=== PATIENT | female | born 1955 | race Caucasian/White ===

== ENCOUNTER 2017-01-27 10:16 | Emergency (ER) | payer BC ==
[2017-01-27 10:48] VITALS: RESP 18
--- NOTE | 2017-01-27 10:48 | PDOC ---
Nausea/Vomiting/Diarrhea HPI - General Chief Complaint: Nausea / Vomiting / Diarrhea Stated Complaint: n/v/d for 5 days, liver issues Date Seen by Provider: 01/27/17 Time Seen by Provider: 10:43 Source: POSITIVE: Patient Exam Limitations: POSITIVE: No limitations Nurse's Notes Reviewed & Considered: Yes - History of Present Illness Initial Comments: This is a 61-year-old female who presents to the emergency room with a history of nausea, vomiting, and diarrhea for the last 5 days or so. She has no real significant abdominal pain. No fevers, she has had some chills. No hematemesis or coffee-ground emesis, no melena or hematochezia. No lightheadedness or dizziness. She is initially seen at the urgent care clinic in [place], the initial workup showed a significant hepatitis, but no evidence of gallstones or ductal dilation on the outpatient ultrasound. She was sent here for further evaluation and treatment. - Patient Home Medications Home Medications: Home Medications Atenolol 1 tab PO BID tab 10/19/16 Calcium Carbonate/Vitamin D3 [Calcium 600-Vit D3 200 Tablet] 1 tab PO BID tab 10/19/16 Cholecalciferol (Vitamin D3) [Vitamin D3] 1 tab PO QD tab 10/19/16 Ezetimibe [Zetia] 10 mg PO QHS tab 10/19/16 Gemfibrozil [Lopid] 600 mg PO BID tab 10/19/16 Hydrochlorothiazide 1 tab PO DAILY tab 10/19/16 Potassium Chloride [K-Tab Er] 20 meq PO BID tab 10/19/16 Rosuvastatin Calcium [Crestor] 1 tab PO QHS tab 10/19/16 Tizanidine HCl [Zanaflex] 1 tab PO QHS PRN tab 10/19/16 Trazodone HCl 1 tab PO DAILY tab 10/19/16 Venlafaxine HCl ER [Effexor Xr] 1 cap PO QHS cap 10/19/16 Venlafaxine HCl [Effexor Xr] 1 cap PO DAILY cap 10/19/16 Diltiazem HCl [Cardizem] 120 mg PO DAILY 10/21/16 Losartan [Cozaar] 50 mg PO DAILY 10/21/16 Ondansetron [Zofran Odt] 8 mg PO Q8H #10 tab 11/05/16 Cyclobenzaprine HCl 10 mg PO BEDTIME PRN PRN 01/27/17 - Patient Allergies Allergies/Adverse Reactions: Allergies Allergy/AdvReac Type Severity Reaction Status Date / Time Sulfa (Sulfonamide Allergy Mild rash Verified 01/27/17 10:28 Antibiotics) Past Medical History - heen HEENT History: Denies History Additional HEENT History: GLASSES Cardiovascular History: Hypertension, Hyperlipidemia Respiratory History: Denies History Gastrointestinal History: Denies History Genitourinary History: Denies History Endocrine History: Denies History Musculoskeletal History: Denies History Neurological History: Denies History Blood Disorders: Denies History Psychiatric History: Depression History of Sexually Transmitted Diseases: No Cancer History: Denies History History of MDRO: No History of Other Communicable Diseases: No Tobacco Use: Former Smoker (Quit in 2014) Alcohol Use: Occasionally Substance Use Type: None Previous Surgical History: Yes Type / Date of Surgery: LEFT BREAST BX 1985, BENIGN Anesthesia Reactions: No Malignant Hyperthermia: No Significant Family History: Heart disease Past Medical History Reviewed: Reviewed - Changes Made ROS - Limitations ROS Limitations: No Limitations Constitution: REPORTS: Chills. DENIES: Fever Cardiovascular: DENIES: Chest Pain Respiratory: REPORTS: Denies Resp Symptoms Neurological: REPORTS: Headache. DENIES: Dizziness Gastrointestinal: REPORTS: Nausea, Vomitting, Diarrhea. DENIES: Abdominal Pain , Black Stools, Bloody Stools Endocrine: REPORTS: Fatigue Musculoskeletal: DENIES: Muscle Aches Genitourinary: DENIES: Dysuria, Flank Pain, Hematuria Eyes: DENIES: Vision Changes ENT: DENIES: Congestion, Nasal Drainage Skin: REPORTS: Denies Skin Symptoms Psychiatric: POSITIVE: Denies Psych Symptoms Nausea/Vomiting/Diarrhea Exam - General Appearance General Appearance: POSITIVE: Alert, Cooperative, No Acute Distress - HEENT HEENT: POSITIVE: EOMI. NEGATIVE: Scleral Icterus - Neck Neck: POSITIVE: Supple, Normal Inspection - Respiratory Respiratory: POSITIVE: No Respiratory Distress, Breath Sounds Normal. NEGATIVE : Wheezes, Rales, Rhonchi - Cardiovascular Cardiovascular: POSITIVE: Regular Rate and Rhythm, Heart Sounds Normal. NEGATIVE: Murmur - Abdomen Additional Abdominal Details: Abdomen is soft, nontender, nondistended. She does have a mildly enlarged liver approximately 1-2 cm below the costal margin. She has no pulsatile masses or abdominal bruits, she has active bowel sounds all 4 quadrants. - Back Back: POSITIVE: Normal Inspection. NEGATIVE: CVA Tenderness (R), CVA Tenderness (L) - Skin Skin: POSITIVE: Intact, Warm, Dry, No Rash, Other (No pitting edema.) - Neurological / Psychological Neurological: POSITIVE: Affect Apporpriate, Oriented X3 N/V/D Progress - Results Reviewed by me Xrays/CTs/US Reviewed by me: Yes Discussed with Radiologist: Yes Radiology Findings: No acute processes Lab Results Reviewed: Yes Lab Results:: INR and PTT were normal on the labs that were sent to [facility] [place] - Patient's Progress Re-examine Time: 02:30 (stable - labs reviewed) Re-Examine Time:: 17:05 (stable) Status: POSITIVE: Unchanged MDM / ED Course: Emergency room course: After initial evaluation, a CT was obtained to try and figure out a cause for her acute hepatitis values. That CT was normal. I subsequently discussed the case with our hospitalist Dr. Martinez, and per his recommendation I did order INR PTT values. These labs ended up having to be sent to [facility] in [place] due to significant lipemia. Her INR PTT are normal. A subsequent discussed the case Dr. Clay, gastrologist from [place]. After discussion with him, he suggested ordering a Tylenol level to complete workup as well as suggesting stopping all of her hyperlipidemic medications, since these could be the etiology as well. I also ordered a viral hepatitis series. All this is reviewed with the patient, she'll be discharged home. She is to stop her cholesterol medications at this time. She is follow- up with her primary care provider on Tuesday to recheck her liver function tests. Return if symptoms get worse otherwise follow up with gastroenterology as needed. - Consult Consult (If Yes, Name of Consulting MD & Time Called): Yes (Dr. Clay, [facility]) Consulting MD will see pt:: POSITIVE: In Office Counseled: POSITIVE: Patient, RE: Lab Results, RE: Radiology Results, RE: DX, RE : Need for F/U Patient Care Time - Estimated PCT Patient Care Time (In Minutes): 40 Vital Signs - Recent Vital Signs Vital Signs: Vital Signs (Last 8 hours) Temp Pulse Resp BP Pulse Ox 01/27/17 12:45 98 F 88 18 134/73 92 01/27/17 10:17 97.4 F 100 18 152/81 93 Discharge Clinical Impression: Acute hepatitis Discharge Disposition: Discharged to Home Condition: Stable Patient Instructions Given at Discharge: Alcoholic Hepatitis (ED)
--- NOTE | 2017-01-27 12:31 | DI ---
CT ABDOMEN SCAN WITH IV CONTRAST, 01/27/2017 10:52 AM : Clinical History: Abnormal LFTs. Previous Exam: None at this facility. Scans are performed from the lower lung bases through the liver and kidneys with IV contrast. 70 ml o f Isovue 300 was injected IV. No oral or rectal contrast was ordered. The lung bases are clear. There is hepatomegaly with diffuse fatty infiltration. There is no intrahep atic biliary dilatation. The gallbladder is grossly normal. There is no abnormality of the spleen, pa ncreas, and adrenal glands. Both kidneys are normal in size, shape, position and contour. There is no hydronephrosis or hydroureter. No renal or ureteral calculi are present. There are no abnormal retro crural or periaortic nodes. No ascites is present. READING: Hepatomegaly with diffuse fatty infiltration. The remainder of the examination is normal. CT PELVIS SCAN WITH IV CONTRAST, 01/27/2017 10:52 AM: Clinical History: See above. Previous Exam: None at this facility. Scans are performed from just superior to the umbilicus to the symphysis pubis with IV contrast. This is the same bolus of contrast used for the CT scans of the abdomen. Scans through the lower abdomen and pelvis show no masses or abnormal fluid collections. There is no adenopathy. The appendix is not identified with certainty. There is no inflammatory mass either in th e right lower quadrant or in the cecal tip. The small bowel, terminal ileum, and ileocecal valve are normal. The colon is also normal. There is a very small umbilical hernia through which only mesenteri c fat has herniated. The uterus and both ovaries are normal. READING: Normal CT scan of the pelvis.
[2017-01-27 15:04] VITALS: TEMP 98
[2017-01-28 11:28] LABS: HEP B CORE IGM ANTIBODY Negative (Negative); HEPATITIS A IGM Negative (Negative); HEPATITIS B SURFACE AG Negative (Negative)
== END 2017-01-27 17:19 | disposition home or self-care (01) ==
LOC: ER 10:16
DX: B17.9 Acute viral hepatitis, unspecified (principal); R19.7 Diarrhea, unspecified; R11.2 Nausea with vomiting, unspecified; R51 Headache
CPT/HCPCS: 36415; 74177; 80329; 85610; 85730; 86705; 86709; 86803; 87340; 99283

== ENCOUNTER → 2017-01-27 | Outpatient (CLI) | payer BC ==
[2017-01-27 08:03] LABS: BASOPHILS # (AUTO) 0.02 10*3/UL; EOSINOPHILS # (AUTO) 0.05 10*3/UL; EOSINOPHILS % (AUTO) 2.4 % (0-8); HEMOGLOBIN 12.7 g/dL (12.0-16.0); LYMPHOCYTES # (AUTO) 0.59 10*3/uL; MEAN CORPUSCULAR HGB CONC 37.4 g/dL (33-37); MEAN CORPUSCULAR VOLUME 91.2 FL (81-99); MEAN PLATELET VOLUME 8.6 FL (7.4-12.2); MONOCYTES # (AUTO) 0.55 10*3/UL (0.3-0.8); MONOCYTES % (AUTO) 26.6 % (5-15); NEUTROPHILS # (AUTO) 0.84 10*3/UL; NEUTROPHILS % (AUTO) 40.5 % (50-80); RED BLOOD COUNT 3.73 10^6/uL (4.20-5.40)
[2017-01-27 08:05] LABS: PLATELET MORPHOLOGY COMMENT NORMAL MORPHOLOGY (NORM); RBC MORPHOLOGY COMMENT SEE COMMENTS (NORM); WBC MORPHOLOGY COMMENT NORMAL MORPHOLOGY (NORM)
[2017-01-27 08:25] LABS: BLOOD UREA NITROGEN 10 mg/dL (7-22); BUN/CREATININE RATIO 16.66 (6-20); C-REACTIVE PROTEIN 0.5 mg/dL (0.0-0.9); EST GLOMERULAR FILTRATION > 60 (>60 ml/min/1.73m(2)); LIPASE 194 IU/L (23-300); SERUM ALBUMIN 3.2 g/dL (3.5-4.8)
--- NOTE | 2017-01-27 09:27 | DI ---
KUB and UPRIGHT ABDOMEN, 01/27/2017 7:23 AM: Clinical History: Not and vomiting. Previous Exam: None at this facility. There are no soft tissue or bony abnormalities. Bowel gas pattern, psoas margins, and flank stripes a re normal. There is mild hepatomegaly. The spleen silhouette is normal in size. There is no free air or fluid. There are no abnormal radiodensities. Reading: Except for mild hepatomegaly, the study is normal.
--- NOTE | 2017-01-27 10:09 | DI ---
GALLBLADDER AND LIVER ULTRASOUND, 01/27/2017 8:48 AM: Clinical History: Nausea and vomiting. Elevated alkaline phosphatase levels. The additional history w as provided to me by the attending provider. Previous Exam: None at this facility. Technique: Scans are performed through the right upper quadrant in multiple projections. The patient was rolled from side to side and the gallbladder was balloted with the probe to facilitate visualizat ion of small gallstones. The gallbladder is well distended and has a normal wall thickness. There are multiple discrete tiny b right echos in the gallbladder that are "floating" in the bile. They measure approximately 1-2 mm in diameter and do not cause acoustical shadowing. They are consistent with either tiny gallstones or ch olesterol flakes. There is no Aden's sign. These bright echos should easily pass through the common bile duct sphincter. If the clinical history still suggests gallbladder disease, consider follow-up with a Tc-99m HIDA biliary scan with fatty meal challenge. The common bile duct measures 5 mm. The pa ncreas is visualized from the neck to the proximal body and those visualized portions are normal. The re is hepatomegaly with increased echogenicity and decreased through transmission consistent with dif fuse fatty infiltration. The right kidney, IVC, and aorta are normal. Readin. There are multiple discrete tiny bright echos in the gallbladder that are "floating" in the bile. They measure approximately 1-2 mm in diameter and do not cause acoustical shadowing. They are consis tent with either tiny gallstones or cholesterol flakes. There is no Aden's sign. These bright echos should easily pass through the common bile duct sphincter. If the clinical history still suggests ga llbladder disease, consider follow-up with a Tc-99m HIDA biliary scan with fatty meal challenge. 2. Hepatomegaly with fatty infiltration. 3. The right kidney, aorta, IVC, and the limited views of the pancreas are normal.
== END ==
LOC: MOB LAB 07:25
PROVIDERS: ATTEND Physician Assistant
DX: R11.2 Nausea with vomiting, unspecified (principal); R19.7 Diarrhea, unspecified; R10.84 Generalized abdominal pain; R74.8 Abnormal levels of other serum enzymes; K76.0 Fatty (change of) liver, not elsewhere classified
CPT/HCPCS: 74020; 76705; 80053; 82150; 83690; 85025; 86140

== ENCOUNTER → 2017-02-01 | Outpatient (CLI) | payer BC ==
[2017-02-01 14:27] LABS: SERUM ALBUMIN 4.4 g/dL (3.5-4.8)
== END ==
LOC: MOB LAB 10:37
PROVIDERS: ATTEND Nurse Practitioner Family
DX: R94.5 Abnormal results of liver function studies (principal)
CPT/HCPCS: 36415; 80053; 80076; 82150; 83690; 86140

== ENCOUNTER → 2017-02-15 | Outpatient (CLI) | payer BC ==
[2017-02-15 08:53] LABS: CHOL/HDL RATIO 3.53 RATIO (0-4.0); LDL CHOLESTEROL,CALCULATED 71.8 mg/dL; SERUM ALBUMIN 4.7 g/dL (3.5-4.8)
== END ==
LOC: LAB 07:48
PROVIDERS: ATTEND Obstetrics & Gynecology Gynecology
DX: E78.5 Hyperlipidemia, unspecified (principal); E78.00 Pure hypercholesterolemia, unspecified
CPT/HCPCS: 36415; 80061; 80076

== ENCOUNTER 2019-02-19 09:22 | Observation (INO) ==
[2019-02-19] MEDS ORDERED: MORPHINE SULFATE 4 MG/1 ML IVP ONE (09:49)
[2019-02-19] MEDS ORDERED: Sodium Chloride 0.9% 1,000 ML PRIMARY IV ONE ×3 (09:49→13:39)
[2019-02-19] MEDS ORDERED: ONDANSETRON 4 MG/2 ML VIAL IVP ONE (09:49)
[2019-02-19] MEDS ORDERED: MORPHINE SULFATE 4 MG/1 ML ONE (09:54)
[2019-02-19] MEDS ORDERED: ONDANSETRON 4 MG/2 ML VIAL ONE (09:54)
[2019-02-19] MEDS ORDERED: fentaNYL Inj 100 MCG/2 ML VIAL IVP ONE ×2 (10:04→11:05)
[2019-02-19] MEDS ORDERED: PROMETHAZINE 25 MG/1 ML VIAL IM ONE ×2 (10:04→10:08)
--- NOTE | 2019-02-19 10:04 | PDOC ---
Abdomen/Flank HPI - General Chief Complaint: Abdomen Pain Stated Complaint: N/V, ABD Pain x3 days Date Seen by Provider: 02/19/19 Time Seen by Provider: 10:19 - History of Present Illness Initial Comments: This very nice 63-year-old woman presents emergency department today with complaints of nausea and vomiting for about 2-3 days abdominal pain over last couple of days and inability to keep anything down. She is currently dry heaving. She states she's never had any significant surgery on her abdomen still has her gallbladder still has her appendix. She states the pain is in the epigastric region primarily. She denies any hematemesis hematochezia. She did have some reflux but was given a GI cocktail at the urgent care and feels that the reflux is better at this point. - Patient Home Medications Home Medications: Home Medications Cholecalciferol (Vitamin D3) [Vitamin D3] 1 tab PO QD tab 10/19/16 Hydrochlorothiazide 1 tab PO DAILY tab 10/19/16 Potassium Chloride [K-Tab ER] 20 meq PO BID tab 10/19/16 Tizanidine HCl [Zanaflex] 1 tab PO QHS PRN tab 10/19/16 Venlafaxine HCl [Effexor Xr] 1 cap PO DAILY cap 10/19/16 Cyclobenzaprine HCl 10 mg PO BEDTIME PRN PRN 01/27/17 Calcium/Vit D 600mg/400u Tab [Calcium 600mg + D 400u Tab] 1 tab PO BID tab 08/14/17 Multivitamin Tab [Thera Tab] 1 tab PO DAILY tab 08/14/17 Venlafaxine HCl ER [Effexor Xr] 75 mg PO DAILY cap.er.24h 08/14/17 losartan 100 mg tablet 100 mg PO DAILY #90 tab 01/27/18 metoprolol succinate ER 100 mg tablet,extended release 24 hr 100 mg PO QDAY #90 tab 01/27/18 diltiazem ER 180 mg capsule,24 hr,extended release 180 mg PO Q24H #90 cap 02/21/18 ezetimibe 10 mg tablet 10 mg PO QDAY 03/30/18 trazodone 100 mg tablet 200 mg PO DAILY #60 tab 03/30/18 - Patient Allergies Allergies/Adverse Reactions: Allergies Allergy/AdvReac Type Severity Reaction Status Date / Time Sulfa (Sulfonamide Allergy Mild rash Verified 02/19/19 07:17 Antibiotics) Past Medical History - heen HEENT History: Denies History Additional HEENT History: GLASSES Cardiovascular History: Hypertension, Hyperlipidemia Respiratory History: Denies History Gastrointestinal History: Denies History Genitourinary History: Denies History Endocrine History: Denies History Musculoskeletal History: Denies History Prosthesis or Implant: No Neurological History: Denies History Blood Disorders: Denies History Psychiatric History: Depression, Substance Abuse Additional Psychiatric History: history of substance abuse, "many years ago" History of Sexually Transmitted Diseases: No Cancer History: Denies History In Past Year Been Physically Harmed or Verbally Threatened: No History of MDRO: No History of Other Communicable Diseases: No Tobacco Use: Never Smoker Alcohol Use: Occasionally In the Past 12 Months, Have Used or Abuse Any Substance: None Previous Surgical History: Yes Type / Date of Surgery: LEFT BREAST BX 1985, BENIGN Anesthesia Reactions: No Malignant Hyperthermia: No Significant Family History: Heart disease Past Medical History Reviewed: Reviewed - No Changes ROS - Limitations ROS Limitations: No Limitations Constitution: REPORTS: Denies Symptoms Cardiovascular: REPORTS: Denies Cardiac Symptoms Respiratory: REPORTS: Denies Resp Symptoms Neurological: REPORTS: Denies Neuro Symptoms Abdominal/Flank Pain PE - General Appearance General Appearance: POSITIVE: Alert, Cooperative, No Acute Distress - HEENT HEENT: POSITIVE: Head Inspection Nml, Eyes Inspection Nml, Ears Inspection Nml - Neck Neck: POSITIVE: Normal Inspection - Respiratory Respiratory: POSITIVE: No Respiratory Distress, Breath Sounds Normal - Cardiovascular Cardiovascular: POSITIVE: Regular Rate and Rhythm, Heart Sounds Normal - Chest Chest: POSITIVE: Non Tender - Abdomen Additional Abdominal Details: She has some vague discomfort to palpation in the epigastric area. Bowel tones are normal to hyperactive - Back Back: POSITIVE: Normal Inspection - Skin Skin: POSITIVE: Intact, Normal For Race - Neurological Neurological: POSITIVE: Affect Apporpriate - Psychological Psychiatric: POSITIVE: Affect Appropriate, Mood Appropriate Abdomen Progress - Results Reviewed by me Xrays/CTs/US Reviewed by me: Yes Radiology Findings: No significant intra-abdominal pathology CBC and BMP: 02/19/19 10:58 02/19/19 10:58 - Patient's Progress MDM / ED Course: It appears that Lynne has likely had a viral gastroenteritis or other source for her vomiting this is lingered on and now she is dehydrated and feeling poorly. She did have elevation in her white blood cell count but CT of her abdomen and pelvis was benign. She took several doses of pain medication due to pain under control as well as despite having multiple doses of antiemetics including and IM Phenergan dose and IV Zofran she continued to have some dry heaving and nausea. Ultimately patient didn't feel that she was in a be able to effectively get home stay hydrated and that she was going to continue to develop. This seems reasonable to me and I asked the hospitalist to admit the patient. She's been accepted by the hospitalist will be admitted to the hospital for further evaluation Patient Care Time - Estimated PCT Patient Care Time (In Minutes): 50 Vital Signs - Recent Vital Signs Vital Signs: Vital Signs (Last 8 hours) Temp Pulse Resp BP Pulse Ox 02/19/19 09:38 97.6 F 121 H 26 H 178/102 95 - VS Reviewed Vital Signs Reviewed: Yes Discharge Clinical Impression: Abdominal pain, Nausea and vomiting Discharge Disposition: Admit to Observation Condition: Stable
[2019-02-19] MEDS ORDERED: fentaNYL Inj 100 MCG/2 ML VIAL ONE (10:08)
--- NOTE | 2019-02-19 10:43 | DI ---
XR ABDOMEN ACUTE 2/ABD 1/CXR,02/19/2019 9:49 AM: Clinical History: Abdominal pain Previous Exam: August 13, 2017 Findings: A routine acute abdominal series is performed, and demonstrates some gentle dextroscoliosis of the th oracic lumbar junction. A nonobstructive bowel gas pattern is seen. The lungs are clear. There is no subdiaphragmatic free air. There are no pathologic calcifications. Impression: No acute disease.
[2019-02-19 11:05] LABS: BASOPHILS # (AUTO) 0.02 10*3/UL; BASOPHILS % (AUTO) 0.2 % (0-1); EOSINOPHILS # (AUTO) 0.02 10*3/UL; EOSINOPHILS % (AUTO) 0.2 % (0-8); Hematocrit [HCT] 45.6 % (37.0-47.0); Hemoglobin [HGB] 16.1 g/dL (12.0-16.0); LYMPHOCYTES # (AUTO) 3.39 10*3/uL; MEAN CORPUSCULAR HEMOGLOBIN 31.6 PG (27-31); MEAN CORPUSCULAR HGB CONC 35.3 g/dL (33-37); MEAN CORPUSCULAR VOLUME 89.6 FL (81-99); MEAN PLATELET VOLUME 9.2 FL (7.4-12.2); MONOCYTES # (AUTO) 1.02 10*3/UL (0.3-0.8); MONOCYTES % (AUTO) 8.1 % (5-15); NEUTROPHILS # (AUTO) 8.14 10*3/UL; NEUTROPHILS % (AUTO) 64.4 % (50-80); RED BLOOD COUNT 5.09 10^6/uL (4.20-5.40)
[2019-02-19 11:06] LABS: PLATELET MORPHOLOGY COMMENT NORMAL MORPHOLOGY (NORM); RBC MORPHOLOGY COMMENT NORMAL MORPHOLOGY (NORM); WBC MORPHOLOGY COMMENT NORMAL MORPHOLOGY (NORM)
[2019-02-19 11:28] LABS: BLOOD UREA NITROGEN 29 mg/dL (7-22); BUN/CREATININE RATIO 32.22 (6-20); LIPASE 95 IU/L (23-300); SERUM ALBUMIN 4.4 g/dL (3.5-4.8)
[2019-02-19] MEDS ORDERED: LIDOCAINE W/ SODIUM BICARB 0.5 ML SYR ONE (12:06)
[2019-02-19] MEDS ORDERED: HYDROmorphone 2 MG/1 ML IVP ONE ×3 (12:12→16:38)
--- NOTE | 2019-02-19 13:08 | DI ---
CT Abdomen/Pelvis W Contrast,02/19/2019 11:39 AM: Clinical History: Upper abdominal pain and leukocytosis. Previous Exam: None at this facility. Findings: Multiple helically acquired CT images are obtained through the abdomen and pelvis following the intra venous administration of 70 cc of Isovue 100. There is subsegmental atelectasis in the lung bases. There is diffuse fatty infiltration of the liver. The spleen, pancreas, gallbladder and adrenals are unremarkable. The appendix is within normal limits. The anterior abdominal wall and subcutaneous fat is unremarkable. A few peripheral vascular calcifications are seen. There is no mesenteric nor retroperitoneal lymphadenopathy. Diffuse degenerative changes of lumbar spine are seen worst at the L5/S1 level. There is also facet a rthropathy. Impression: 1. No acute intra-abdominal pathology.
[2019-02-19] MEDS ORDERED: Sodium Chloride 0.9% 1,000 ML with Potassium Chloride Inj 40 MEQ IV SCH ×2 (13:45)
[2019-02-19] MEDS ORDERED: HYDROmorphone 2 MG/1 ML ONE (14:05)
[2019-02-19] MEDS ORDERED: PANTOPRAZOLE IV 40 MG VIAL IVP ONE (14:19)
[2019-02-19 16:50] LABS: BILIRUBIN,URINE NEGATIVE (NEG); CLARITY,URINE CLEAR (CLEAR); COLOR,URINE YELLOW (Y); GLUCOSE, URINE (UA) NEGATIVE (NEG); OCCULT BLOOD,URINE NEGATIVE (NEG); PH,URINE 6.5 (5.0-8.5); PROTEIN,URINE TRACE mg/dl (NEG); UROBILINOGEN,URINE 0.2 EU/dL (0.2)
[2019-02-19 16:55] LABS: URINE SAMPLE TYPE CLEAN CATCH URINE
[2019-02-19] MEDS ORDERED: TRAZODONE HCL 200 MG PO SCH (17:32)
[2019-02-19] MEDS ORDERED: ONDANSETRON 4 MG/2 ML VIAL IVP PRN (17:32)
[2019-02-19] MEDS ORDERED: VENLAFAXINE XR 75 MG CAP PO SCH ×2 (17:32→21:00)
[2019-02-19] MEDS ORDERED: LIDOCAINE W/ SODIUM BICARB 0.5 ML SYR SUBD PRN (17:32)
[2019-02-19] MEDS ORDERED: DILTIAZEM HCL 180 MG PO SCH (17:32)
[2019-02-19] MEDS ORDERED: LORazepam 2 MG/1 ML VIAL IVP PRN (18:09)
--- NOTE | 2019-02-19 18:11 | PDOC ---
HPI - History of Present Illness History of Present Illness: Is a very nice 63-year-old female who was sent from the urgent care for abdominal pain to the ER. She states that she started having nausea nausea and vomiting all day Tuesday and then dry heaves all day Tuesday and Tuesday and decided to be seen today. Denies any tarry stools or hemoptysis CT scan of the abdomen and pelvis were unremarkable denies chest protocol and says improved her epigastric pain and she is more comfortable at present time Past Medical History Surgical History: Elevated LFTs most likely secondary to alcohol, depression, hypertension Tobacco Use: Never Smoker In the Past 12 Months, Have Used or Abuse Any of the Following Substance: None Medication / Allergies Home Medications: Home Medications Medication Instructions Recorded Confirmed Cholecalciferol (Vitamin D3) 1 tab PO QD tab 10/19/16 02/19/19 [Vitamin D3] Hydrochlorothiazide 1 tab PO DAILY tab 10/19/16 02/19/19 Potassium Chloride [K-Tab ER] 20 meq PO BID tab 10/19/16 02/19/19 Tizanidine HCl [Zanaflex] 1 tab PO QHS PRN tab 10/19/16 02/19/19 Venlafaxine HCl [Effexor Xr] 1 cap PO DAILY cap 10/19/16 02/19/19 Cyclobenzaprine HCl 10 mg PO BEDTIME PRN PRN 01/27/17 02/19/19 Calcium/Vit D 600mg/400u Tab 1 tab PO BID tab 08/14/17 02/19/19 [Calcium 600mg + D 400u Tab] Multivitamin Tab [Thera Tab] 1 tab PO DAILY tab 08/14/17 02/19/19 Venlafaxine HCl ER [Effexor Xr] 75 mg PO DAILY cap.er.24h 08/14/17 02/19/19 losartan 100 mg tablet 100 mg PO DAILY #90 tab 01/27/18 02/19/19 metoprolol succinate ER 100 mg 100 mg PO QDAY #90 tab 01/27/18 02/19/19 tablet,extended release 24 hr diltiazem ER 180 mg capsule,24 180 mg PO Q24H #90 cap 02/21/18 02/19/19 hr,extended release ezetimibe 10 mg tablet 10 mg PO QDAY 03/30/18 02/19/19 mometasone-formoterol HFA 200 13 gm Hfa.Aer.Ad#2 Samples 03/30/18 02/19/19 mcg-5 mcg/actuation aerosol inhaler trazodone 100 mg tablet 200 mg PO DAILY #60 tab 03/30/18 02/19/19 Allergies/Adverse Reactions: Allergies Allergy/AdvReac Type Severity Reaction Status Date / Time Sulfa (Sulfonamide Allergy Mild rash Verified 02/19/19 07:17 Antibiotics) Review of Systems - Review of Systems All Systems: Reviewed & No Additional Complaints Except as Stated - Cardiovascular Cardiovascular: DENIES: Negative System Review, Chest Pain, Edema, Syncope, Palpitations, Orthopnea, Paroxysmal Nocturnal Dyspnea, Other, See HPI - Gastrointestinal Gastrointestinal / Abdominal: REPORTS: Nausea, Vomiting, Abdominal Pain. DENIES: Negative System Review, Diarrhea, Constipation, Bloody Stool, Poor Appetite, Heartburn, Regurgitation, Bloating, Lactose Intolerance, Melena, Brigh t Red Blood per Rectum, Other, See HPI Exam - Vitals Vital Signs: Vital Signs Temperature 97.5 F Temperature Source Temporal Artery Scan Pulse Rate [Pulse Oximeter] 114 Pulse Rate 74 Respiratory Rate 22 Blood Pressure [Right Arm] 160/88 Blood Pressure [Left Arm] 160/98 Blood Pressure 168/84 Pulse Ox 92 Oxygen Delivery Method Room Air Height 5 ft 4 in Weight 150 lb - General General Appearance: No Acute Distress, Cooperative - Respiratory Respiratory Exam: POSITIVE: Clear to Auscultation - Bilaterally, Breathing Non Labored, Normal To Percussion, Normal to Percussion and Palpation - Cardiovascular Cardiovascular Exam: POSITIVE: RRR, No Murmur, No Clicks, No Gallops, No Rubs, PMI Non-Displaced - GI/Abdominal GI/Abdominal Exam: POSITIVE: Normal Bowel Sounds, Non Tender, Non Distended, Soft, No Masses, No Hepatomegaly, No Splenomegaly, No Organomegaly - Extremities Extremities Exam: POSITIVE: No Clubbing Present, No Edema Present - Neurological Neurological Exam: POSITIVE: Alert, Oriented x 3, Speech Intact / Clear Results - Labs CBC and BMP: 02/19/19 10:58 02/19/19 10:58 Assessment and Plan - Patient Problems (1) Viral gastroenteritis Current Visit: Yes Status: Acute Comment: protonix iv daily,iv fluids Code(s): A08.4 - Viral intestinal infection, unspecified (2) Abdominal pain Current Visit: Yes Status: Acute Comment: ct scamn negative checku/s for gallstones Code(s): R10.9 - Unspecified abdominal pain (3) Dehydration Current Visit: No Status: Acute Comment: iv fluids Code(s): E86.0 - Dehydration (4) Elevated liver enzymes Current Visit: No Status: Acute Comment: chronic Code(s): R74.8 - Abnormal levels of other serum enzymes
[2019-02-19] MEDS: VENLAFAXINE HCL XR 150 MG CAP PO SCH (18:13)
[2019-02-19] MEDS ORDERED: DILTIAZEM CD 180 MG CAP PO ONE (19:30)
[2019-02-19] MEDS ORDERED: METOPROLOL SUCCINATE 100 MG SR 24H TABLET PO ONE (19:30)
[2019-02-19] MEDS ORDERED: LOSARTAN 50 MG TABLET PO ONE (19:30)
[2019-02-19] MEDS: HEPARIN 5000 UNIT/1 ML SUBCUT SCH (19:31)
[2019-02-19] MEDS: traZODone Tab 50 MG TAB PO SCH (20:45)
[2019-02-19] MEDS: Potassium Chloride Tab 10 MEQ TAB PO SCH (20:46)
[2019-02-19] MEDS ORDERED: VENLAFAXINE HCL XR 150 MG CAP PO ONE (21:00)
[2019-02-20] MEDS: HEPARIN 5000 UNIT/1 ML SUBCUT SCH ×3 (03:10→20:25)
[2019-02-20 08:08] LABS: BASOPHILS # (AUTO) 0.02 10*3/UL; BASOPHILS % (AUTO) 0.3 % (0-1); EOSINOPHILS # (AUTO) 0.05 10*3/UL; EOSINOPHILS % (AUTO) 0.8 % (0-8); Hematocrit [HCT] 37.6 % (37.0-47.0); Hemoglobin [HGB] 12.6 g/dL (12.0-16.0); MEAN CORPUSCULAR HEMOGLOBIN 32.1 PG (27-31); MEAN CORPUSCULAR HGB CONC 33.5 g/dL (33-37); MEAN CORPUSCULAR VOLUME 95.9 FL (81-99); MEAN PLATELET VOLUME 9.4 FL (7.4-12.2); MONOCYTES # (AUTO) 0.52 10*3/UL (0.3-0.8); MONOCYTES % (AUTO) 8.1 % (5-15); NEUTROPHILS # (AUTO) 3.72 10*3/UL; NEUTROPHILS % (AUTO) 57.8 % (50-80); RED BLOOD COUNT 3.92 10^6/uL (4.20-5.40)
[2019-02-20 08:10] LABS: PLATELET MORPHOLOGY COMMENT NORMAL MORPHOLOGY (NORM); RBC MORPHOLOGY COMMENT NORMAL MORPHOLOGY (NORM); WBC MORPHOLOGY COMMENT NORMAL MORPHOLOGY (NORM)
[2019-02-20] MEDS: Potassium Chloride Tab 10 MEQ TAB PO SCH ×2 (09:54→20:25)
[2019-02-20] MEDS: PANTOPRAZOLE IV 40 MG VIAL IVP SCH (09:54)
[2019-02-20] MEDS: VENLAFAXINE HCL XR 150 MG CAP PO SCH (09:55)
[2019-02-20] MEDS: LOSARTAN 50 MG TABLET PO SCH (09:55)
[2019-02-20] MEDS: DILTIAZEM CD 180 MG CAP PO SCH (09:55)
[2019-02-20] MEDS: METOPROLOL SUCCINATE 100 MG SR 24H TABLET PO SCH (09:55)
--- NOTE | 2019-02-20 10:35 | DI ---
US Abdomen Limited,02/20/2019 5:32 PM: Clinical History: Abdominal pain. Previous Exam: January 27, 2017 Findings: Multiple grayscale and color Doppler sonographic images are obtained through the right upper quadrant , and demonstrate a diffusely echogenic liver without masses. The gallbladder is normal with gallbladder wall measuring 2 mm. Negative sonographic Aden's sign wa s obtained. There is no stones. The common bile duct measures 4 mm. Right kidney measures 10.1 cm in length without hydronephrosis nor nephrolithiasis. Impression: Normal right upper quadrant ultrasound.
--- NOTE | 2019-02-20 11:55 | PDOC(PROG) ---
Interval History: Patient is doing much better today abdominal pain has dissipated and is back to her normal self tolerating some food but still not strong enough to to be discharged home continue IV fluids and Protonix Objective : Data - Labs CBC and BMP: 02/20/19 08:00 02/19/19 10:58 Objective : Exam - General General Appearance: No Acute Distress, Cooperative - Respiratory Respiratory Exam: Clear to Auscultation - Bilaterally, Breathing Non Labored, Normal To Percussion, Normal to Percussion and Palpation - Cardiovascular Cardiovascular Exam: RRR, No Murmur, No Clicks, No Gallops, No Rubs, PMI Non- Displaced - GI/Abdominal GI/Abdominal Exam: Normal Bowel Sounds, Non Tender, Non Distended, Soft, No Masses, No Hepatomegaly, No Splenomegaly, No Organomegaly Assessment and Plan - Patient Problems (1) Viral gastroenteritis Current Visit: Yes Status: Acute Comment: Improving possibly will need EGD as outpatient Code(s): A08.4 - Viral intestinal infection, unspecified (2) Abdominal pain Current Visit: Yes Status: Acute Comment: Resolved. ultrasound no focal cholecystitis no gallstones Code(s): R10.9 - Unspecified abdominal pain (3) Dehydration Current Visit: No Status: Acute Code(s): E86.0 - Dehydration (4) Elevated liver enzymes Current Visit: No Status: Acute Code(s): R74.8 - Abnormal levels of other serum enzymes
[2019-02-20] MEDS: traZODone Tab 50 MG TAB PO SCH (20:25)
[2019-02-20] MEDS: VENLAFAXINE XR 75 MG CAP PO SCH (20:26)
[2019-02-20] MEDS: MORPHINE SULFATE 2 MG/1 ML IVP PRN (22:57)
[2019-02-21] MEDS: Loperamide Tab 2 MG TABLET PO PRN ×3 (03:06→21:34)
[2019-02-21] MEDS: HEPARIN 5000 UNIT/1 ML SUBCUT SCH ×3 (03:06→20:09)
[2019-02-21] MEDS: MORPHINE SULFATE 2 MG/1 ML IVP PRN ×2 (05:40→22:27)
[2019-02-21 07:36] LABS: BASOPHILS # (AUTO) 0.01 10*3/UL; BASOPHILS % (AUTO) 0.1 % (0-1); EOSINOPHILS % (AUTO) 1.1 % (0-8); Hematocrit [HCT] 37.9 % (37.0-47.0); Hemoglobin [HGB] 12.7 g/dL (12.0-16.0); LYMPHOCYTES # (AUTO) 1.62 10*3/uL; MEAN CORPUSCULAR HGB CONC 33.5 g/dL (33-37); MEAN CORPUSCULAR VOLUME 95.5 FL (81-99); MEAN PLATELET VOLUME 9.2 FL (7.4-12.2); MONOCYTES % (AUTO) 5.6 % (5-15); NEUTROPHILS % (AUTO) 74.9 % (50-80); RED BLOOD COUNT 3.97 10^6/uL (4.20-5.40)
[2019-02-21 07:39] LABS: PLATELET MORPHOLOGY COMMENT NORMAL MORPHOLOGY (NORM); RBC MORPHOLOGY COMMENT NORMAL MORPHOLOGY (NORM); WBC MORPHOLOGY COMMENT NORMAL MORPHOLOGY (NORM)
[2019-02-21 08:17] LABS: BLOOD UREA NITROGEN 6 mg/dL (7-22); SERUM ALBUMIN 3.3 g/dL (3.5-4.8)
[2019-02-21] MEDS: LOSARTAN 50 MG TABLET PO SCH (09:05)
[2019-02-21] MEDS: VENLAFAXINE HCL XR 150 MG CAP PO SCH (09:05)
[2019-02-21] MEDS: DILTIAZEM CD 180 MG CAP PO SCH (09:05)
[2019-02-21] MEDS: PANTOPRAZOLE IV 40 MG VIAL IVP SCH (09:06)
[2019-02-21] MEDS: Potassium Chloride Tab 10 MEQ TAB PO SCH ×2 (09:06→20:09)
[2019-02-21] MEDS: METOPROLOL SUCCINATE 100 MG SR 24H TABLET PO SCH (09:06)
--- NOTE | 2019-02-21 09:47 | PDOC(PROG) ---
Interval History: The patient started having diarrhea last evening, we checked for C. difficile which was negative it is watery no blood no black stools. No chest pain no nausea no vomiting that has resolved now it is diarrhea. Objective : Data - Labs CBC and BMP: 02/21/19 07:30 02/21/19 07:34 Objective : Exam - General General Appearance: Cooperative Additional General Exam Details: Feels very weak - Respiratory Respiratory Exam: Clear to Auscultation - Bilaterally, Breathing Non Labored, Normal To Percussion, Normal to Percussion and Palpation - Cardiovascular Cardiovascular Exam: RRR, No Murmur, No Clicks, No Gallops, No Rubs, PMI Non- Displaced - GI/Abdominal GI/Abdominal Exam: Normal Bowel Sounds, Non Tender, Non Distended, Soft, No Masses, No Hepatomegaly, No Splenomegaly, No Organomegaly - Extremities Extremities Exam: No Clubbing Present, No Edema Present, No Cyanosis Present - Neurological Neurological Exam: Alert, Oriented x 3, No Facial Droop, Speech Intact / Clear, Moves All Extremities Equally Assessment and Plan - Patient Problems (1) Viral gastroenteritis Current Visit: Yes Status: Acute Comment: Patient is well rehydrated BUN decreased her hands are puffy we will stop IV fluids. She started having diarrhea last evening. C. difficile was negative. I saw the patient with nurse Gege I told her I would like to check her stools for ova parasite and possibly do a GI by a fire. She said she does not want her to stools tested and does not want the bile fire ran she just wants to see how she feels later today and then tell us later if she wants her stools checked. I told her that the I would recommend checking things right away because of delay in diagnosis could result in the other leg and treatment which could ultimately result in she understands this but she still says she does not want her stools checked. For any source of infection. I told her this could be viral gastroenteritis she is eating and tolerating her food Code(s): A08.4 - Viral intestinal infection, unspecified (2) Abdominal pain Current Visit: Yes Status: Acute Comment: Resolved we will stop morphine also will stop Ativan for anxiety Code(s): R10.9 - Unspecified abdominal pain (3) Dehydration Current Visit: No Status: Acute Comment: Stop IV fluids Code(s): E86.0 - Dehydration (4) Elevated liver enzymes Current Visit: No Status: Acute Comment: Now normalized Code(s): R74.8 - Abnormal levels of other serum enzymes
[2019-02-21] MEDS: traZODone Tab 50 MG TAB PO SCH (20:08)
[2019-02-21] MEDS: VENLAFAXINE XR 75 MG CAP PO SCH (20:09)
[2019-02-21] MEDS ORDERED: Petrolatum, White Jelly 5 APPLIC/5 GM PACKET TOPICAL PRN (20:21)
--- NOTE | 2019-02-21 23:05 | DI ---
EXAM: CT Abdomen and Pelvis With Intravenous Contrast CLINICAL HISTORY: ITS.REASON abd pain, diarrhea Physician Notes: Tech Comments: TECHNIQUE: Axial computed tomography images of the abdomen and pelvis with intravenous contrast. COMPARISON: CT 02/19/19. FINDINGS: Limited images through the lung bases demonstrate mild basilar atelectasis. Fluid and air in the small and large bowel, can be seen with enteritis or diarrheal disease. Areas of colonic wall thickening suggestive of nonspecific colitis. There is no evidence of bowel obstruction. Duodenal diverticulum noted. The appendix is normal in caliber. Prominence of the bilateral renal collecting systems without evidence of ureteral stone. The gallbladder is contracted. Additional incidental findings appear unchanged compared to recent prior study. IMPRESSION: Fluid in the small and large bowel, can be seen with enteritis or diarrheal disease. Areas of colonic wall thickening suggestive of nonspecific colitis.
[2019-02-21] MEDS ORDERED: Ertapenem Inj 1 GM in Sodium Chloride 0.9% 100 ML IV SCH (23:30)
[2019-02-22] MEDS: HEPARIN 5000 UNIT/1 ML SUBCUT SCH ×3 (04:12→21:29)
[2019-02-22] MEDS: MORPHINE SULFATE 2 MG/1 ML IVP PRN (04:13)
[2019-02-22] MEDS: Loperamide Tab 2 MG TABLET PO PRN ×3 (04:13→23:03)
[2019-02-22 04:46] LABS: BASOPHILS # (AUTO) 0.01 10*3/UL; BASOPHILS % (AUTO) 0.2 % (0-1); EOSINOPHILS # (AUTO) 0.09 10*3/UL; EOSINOPHILS % (AUTO) 1.5 % (0-8); Hematocrit [HCT] 42.1 % (37.0-47.0); Hemoglobin [HGB] 13.9 g/dL (12.0-16.0); LYMPHOCYTES # (AUTO) 1.92 10*3/uL; MEAN CORPUSCULAR HEMOGLOBIN 31.2 PG (27-31); MEAN CORPUSCULAR VOLUME 94.4 FL (81-99); MEAN PLATELET VOLUME 9.5 FL (7.4-12.2); MONOCYTES # (AUTO) 0.42 10*3/UL (0.3-0.8); MONOCYTES % (AUTO) 7.1 % (5-15); NEUTROPHILS # (AUTO) 3.48 10*3/UL; NEUTROPHILS % (AUTO) 58.6 % (50-80); RED BLOOD COUNT 4.46 10^6/uL (4.20-5.40)
[2019-02-22 04:58] LABS: BLOOD UREA NITROGEN 5 mg/dL (7-22); BUN/CREATININE RATIO 8.33 (6-20)
[2019-02-22 04:59] LABS: PLATELET MORPHOLOGY COMMENT NORMAL MORPHOLOGY (NORM); RBC MORPHOLOGY COMMENT NORMAL MORPHOLOGY (NORM); WBC MORPHOLOGY COMMENT NORMAL MORPHOLOGY (NORM)
[2019-02-22] MEDS: oxyCODONE-ACETAMINOPHEN 5-325 TAB PO PRN ×3 (04:59→23:02)
[2019-02-22 05:35] LABS: SERUM ALBUMIN 3.9 g/dL (3.5-4.8)
[2019-02-22] MEDS ORDERED: Magnesium Sulfate 2gm (Premix) 2 GM/50 ML BAG IV ONE (08:21)
[2019-02-22] MEDS: LOSARTAN 50 MG TABLET PO SCH (09:32)
[2019-02-22] MEDS: POTASSIUM CHLORIDE 20 MEQ TAB PO SCH ×2 (09:32→21:29)
[2019-02-22] MEDS: VENLAFAXINE HCL XR 150 MG CAP PO SCH (09:32)
[2019-02-22] MEDS: DILTIAZEM CD 180 MG CAP PO SCH (09:33)
[2019-02-22] MEDS: PANTOPRAZOLE IV 40 MG VIAL IVP SCH (09:34)
[2019-02-22] MEDS: Potassium Chloride Tab 10 MEQ TAB PO SCH (09:42)
[2019-02-22] MEDS: MAGNESIUM OXIDE 400 MG TABLET PO SCH ×2 (09:49→21:29)
[2019-02-22] MEDS: METOPROLOL SUCCINATE 100 MG SR 24H TABLET PO SCH (09:49)
[2019-02-22] MEDS: Amoxicill/Clav 875/125mg Tab 1 TAB TAB PO SCH ×2 (09:49→21:29)
--- NOTE | 2019-02-22 09:59 | PDOC(PROG) ---
Interval History: The patient is a little better this morning I examined her with the nurse Neville. She says diarrhea has decreased her last bout was early this morning at 4 AM. She states her abdominal pain is improved. She would like not to get IV stridor put in her since it is very painful and would like to do oral medications. I told her considering that she is improving and there is no white count and negative physical exam of her abdomen we will do by mouth antibiotics and replace her magnesium by mouth as well as well as her potassium denies chest pain nausea vomiting she is having oatmeal for breakfast Objective : Data - Labs CBC and BMP: 02/22/19 04:20 02/22/19 04:20 Objective : Exam - General General Appearance: No Acute Distress, Cooperative - Respiratory Respiratory Exam: Clear to Auscultation - Bilaterally, Breathing Non Labored, Normal To Percussion, Normal to Percussion and Palpation - Cardiovascular Cardiovascular Exam: RRR, No Murmur, No Clicks, No Gallops, No Rubs, PMI Non- Displaced - GI/Abdominal GI/Abdominal Exam: Normal Bowel Sounds, Non Tender, Non Distended, Soft, No Masses, No Hepatomegaly, No Splenomegaly, No Organomegaly - Extremities Extremities Exam: No Clubbing Present, No Edema Present, No Cyanosis Present Assessment and Plan - Patient Problems (1) Viral gastroenteritis Current Visit: Yes Status: Acute Comment: Continue Protonix improving Code(s): A08.4 - Viral intestinal infection, unspecified (2) Abdominal pain Current Visit: Yes Status: Acute Comment: Most likely secondary to mild colitis. Patient prefers by mouth antibiotics will start Augmentin twice a day recommended colonoscopy as an outpatient her last one was 10 years ago also we will do Percocet for pain she requested something oral since her IV went bad Code(s): R10.9 - Unspecified abdominal pain (3) Dehydration Current Visit: No Status: Acute Comment: Encourage by mouth intake patient does not want to attempt to resume IV Code(s): E86.0 - Dehydration (4) Elevated liver enzymes Current Visit: No Status: Acute Comment: Now normal Code(s): R74.8 - Abnormal levels of other serum enzymes (5) Colitis Current Visit: Yes Status: Acute Comment: Start by mouth antibiotics received 1 dose of Invanz last night Code(s): K52.9 - Noninfective gastroenteritis and colitis, unspecified
[2019-02-22] MEDS: traZODone Tab 50 MG TAB PO SCH (21:29)
[2019-02-22] MEDS: VENLAFAXINE XR 75 MG CAP PO SCH (21:29)
[2019-02-23] MEDS: HEPARIN 5000 UNIT/1 ML SUBCUT SCH ×2 (04:39→12:48)
[2019-02-23] MEDS: Loperamide Tab 2 MG TABLET PO PRN (04:46)
[2019-02-23] MEDS: oxyCODONE-ACETAMINOPHEN 5-325 TAB PO PRN ×2 (04:46→09:08)
[2019-02-23 09:07] VITALS: TEMP 97.2
[2019-02-23] MEDS: MAGNESIUM OXIDE 400 MG TABLET PO SCH (09:07)
[2019-02-23] MEDS: Amoxicill/Clav 875/125mg Tab 1 TAB TAB PO SCH (09:08)
[2019-02-23] MEDS: METOPROLOL SUCCINATE 100 MG SR 24H TABLET PO SCH (09:08)
[2019-02-23] MEDS: VENLAFAXINE HCL XR 150 MG CAP PO SCH (09:08)
[2019-02-23] MEDS: POTASSIUM CHLORIDE 20 MEQ TAB PO SCH (09:08)
[2019-02-23] MEDS: DILTIAZEM CD 180 MG CAP PO SCH (09:08)
[2019-02-23] MEDS: LOSARTAN 50 MG TABLET PO SCH (09:08)
[2019-02-23] MEDS: PANTOPRAZOLE IV 40 MG VIAL IVP SCH (09:33)
--- NOTE | 2019-02-23 10:33 | DCSUMMARY ---
Hospitalization Summary Hospital Course: Final Discharge Diagnosis: Current Visit Problems Problem Status Onset Code Abdominal pain Acute R10.9 Viral gastroenteritis Acute A08.4 Abdominal pain Acute R10.9 Nausea and vomiting Acute R11.2 Colitis Acute K52.9 Diagnostic Data, Laboratory Data, and Procedures of Signifigance: CBC and BMP 02/22/19 04:20 02/22/19 04:20 History and Physical pertinent to Admission: Course of Hospitalization: This very nice 63-year-old female who comes in with the nausea vomiting and de hydration labs and initial CT scan did not reveal acute changes. Patient was dehydrated and was given IV fluids and her potassium replaced. While in the hospital started having acute diarrhea initially she refuses to get her stool sent for checked for ova parasites and bacteria then she changed her mind by a fire came back negative patient is diarrhea continued every hour she agreed to have a another CT of the scan of the abdomen and pelvis which showed some mild colitis. She did not want any more IV medication and wanted only oral no labs she was given by mouth Augmentin and also received 1 dose of Invanz. Patient's diarrhea subsided only had 1 episode in the last 18 hours. No fever patient is now wanting to be discharged home. She has an occasional abdominal cramp and has requested to have some something for pain at home she specifically requested hydrocodone which says works for her. I told her that she needs a follow-up with the general surgery of possible colonoscopy as an outpatient she said she will make her own appointment and will decide who she wants to go to. Also she says she will make an appointment with Dr. Aggarwal for follow-up as well he does not want me to make any appointments. 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 I also told her she should not take her muscle relaxants with It discussed with nursing in detail. She was given 40 by mouth twice a day of potassium and also 400 /4 times a day of magnesium which is replaced and she did not want any labs drawn because of the she did not want any IV or needles stuck in her On the date of discharge, the patient was examined: Gen.: No acute distress, alert, nontoxic Heart: Regular rate and rhythm, no murmurs, clicks, gallops, or rubs Lungs: Clear to auscultation bilaterally, breathing is nonlabored Abdomen/GI: Normal tones on auscultation, soft, nontender, nondistended Musculoskeletal/extremities: No clubbing, cyanosis, or edema Vitals reviewed and are listed below Vital Signs (24 hrs) 02/22/19 11:03 02/22/19 15:56 02/22/19 19:00 Temperature 97 F 97.8 F Pulse Rate [Pulse Oximeter] 110 H 87 87 Respiratory Rate 18 18 Blood Pressure [Left Arm] Blood Pressure [Right Arm] 122/58 128/63 Pulse Ox 91 92 02/23/19 04:38 02/23/19 09:00 Temperature 97 F 97.2 F Pulse Rate [Pulse Oximeter] 93 97 Respiratory Rate 16 18 Blood Pressure [Left Arm] 142/80 Blood Pressure [Right Arm] Pulse Ox 94 93 Assessment and Plan: 1. As per discharge assessments above 2. Disposition: Home 3. Condition on discharge, stable and improved. 4. Diet: regular diet 5. Activities: resume normal activities 6. Follow-Up: 1. PCP 2. See above she will make her own appointments for general surgery for possible colonoscopy and primary care physician with Dr. Aggarwal 7. Medications at the Time of Discharge: Home Medications Medication Instructions Recorded Confirmed Cholecalciferol (Vitamin D3) 1 tab PO QD tab 10/19/16 02/20/19 [Vitamin D3] Potassium Chloride [K-Tab ER] 20 meq PO BID tab 10/19/16 02/20/19 Tizanidine HCl [Zanaflex] 2 tab PO DAILY PRN tab 10/19/16 02/20/19 Venlafaxine HCl [Effexor Xr] 1 cap PO DAILY cap 10/19/16 02/20/19 Calcium/Vit D 600mg/400u Tab 1 tab PO BID tab 08/14/17 02/20/19 [Calcium 600mg + D 400u Tab] Multivitamin Tab [Thera Tab] 1 tab PO DAILY tab 08/14/17 02/20/19 Venlafaxine HCl ER [Effexor Xr] 75 mg PO DAILY cap.er.24h 08/14/17 02/20/19 losartan 100 mg tablet 100 mg PO DAILY #90 tab 01/27/18 02/20/19 metoprolol succinate ER 100 mg 100 mg PO QDAY #90 tab 01/27/18 02/20/19 tablet,extended release 24 hr ezetimibe 10 mg tablet 10 mg PO QDAY 03/30/18 02/20/19 trazodone 100 mg tablet 200 mg PO DAILY #60 tab 03/30/18 02/20/19 Amoxicill/Clav 875/125mg 1 tab PO BID 8 Days #16 tab 02/23/19 [Augmentin 875/125mg] Hydrocodone/Acetaminophen [Vicodin 1 ea PO Q8H PRN PRN #6 tab 02/23/19 5-300 mg Tablet] 8. Time, care, counseling and coordination of care for this discharge is greater than 30 minutes. Exam - Vitals Vital Signs: Vital Signs Temperature 97.2 F Temperature Source Temporal Artery Scan Pulse Rate [Pulse Oximeter] 97 Pulse Rate 74 Respiratory Rate 18 Blood Pressure [Right Arm] 128/63 Blood Pressure [Left Arm] 142/80 Blood Pressure 168/84 Pulse Ox 93 Oxygen Flow Rate 2 Oxygen Delivery Method Room Air Height 5 ft 4 in Weight 147 lb 6.4 oz Patient Problems - Patient Problem List (1) Viral gastroenteritis Current Visit: Yes Status: Acute Code(s): A08.4 - Viral intestinal infecti on, unspecified Category: Medical (2) Abdominal pain Current Visit: Yes Status: Acute Code(s): R10.9 - Unspecified abdominal pain Category: Medical (3) Dehydration Current Visit: No Status: Acute Code(s): E86.0 - Dehydration Category: Medical (4) Elevated liver enzymes Current Visit: No Status: Acute Code(s): R74.8 - Abnormal levels of other serum enzymes Category: Medical (5) Colitis Current Visit: Yes Status: Acute Code(s): K52.9 - Noninfective gastroenteritis and colitis, unspecified Category: Medical
[2019-02-23 11:57] VITALS: BP 138/72; RESP 20; O2SAT 92
[2019-02-23] MEDS ORDERED: PANTOPRAZOLE 40 MG TABLET PO SCH (13:00)
== END 2019-02-23 14:16 | disposition home or self-care (01) ==
LOC: MED/SURG 09:22 → ER 09:22 → MED/SURG 17:49
PROVIDERS: ADMIT Internal Medicine; ATTEND Internal Medicine